=== PATIENT | female | born 1995 | race Hispanic/Latino ===

== ENCOUNTER 2019-07-22 13:04 | Emergency (ER) | payer OTHER ==
[~2019-07-22] VITALS: Ht 170.2 cm; Wt 79.4 kg
--- OUTSIDE RECORDS SUMMARY | 2019-07-22 13:07 | XMS REPORT | Continuity of Care Document ---
Author Author [employer] Address Unknown Phone Unavailable Care Team Providers Care Cardroom Manager Name Role Phone [employer] Information [employer] Unavailable Unavailable Problems Problem Status Onset Date Classification Date Reported Comments Source Immunization due 02/12/2019 Diagnosis 02/12/2019 [facility] Body mass index 25-29 - overweight 02/12/2019 Diagnosis 02/12/2019 [facility] Influenza-like symptoms 02/12/2019 Diagnosis 02/12/2019 [facility] Medications Medication Details Route Status Patient Instructions Ordering Provider Order Date Source ProAir HFA ProAir HFA Active [facility] Oseltamivir 75 MG Oral Capsule [Tamiflu] Tamiflu 75 mg capsule Take 1 capsule twice a day by oral route for 5 days. Active [facility] Allergies, Adverse Reactions, Alerts No Known Medication Allergies Immunizations No Data Provided for This Section Results Order Name Results Value Reference Range Date Interpretation Comments Source Influenza A positive 02/12/2019 [facility] Influenza B negative 02/12/2019 [facility] Pathology Reports No Data Provided for This Section Diagnostic Reports No Data Provided for This Section Consultation Notes No Data Provided for This Section Discharge Summaries No Data Provided for This Section History and Physicals No Data Provided for This Section Vital Signs Vital Sign Value Date Comments Source Diastolic (mm Hg) 60 02/12/2019 [facility] Height 67 02/12/2019 [facility] Systolic (mm Hg) 117 02/12/2019 [facility] Weight 173 02/12/2019 [facility] Encounters Location Location Details Encounter Type Encounter Number Reason For Visit Attending Provider ADM Date DC Date Status Source [place] - [facility] - [id number] Rico-C: [address] [place] [address], Ph. [id number] Tammi Aponte 02/12/2019 [facility] Procedures No Data Provided for This Section Assessment and Plan No Data Provided for This Section Plan of Care No Data Provided for This Section Social History Social History Date Source Smoking Status Never Smoker 02/12/2019 [facility] Family History No Data Provided for This Section Advance Directives No Data Provided for This Section Functional Status No Data Provided for This Section
--- OUTSIDE RECORDS SUMMARY | 2019-07-22 13:07 | XMS REPORT | Encounter Summary ---
Author Organization Unknown Address [address] [place] [address] Phone [phone] Reason for Visit Medical Complaint Instructions 1. Influenza-like symptoms Tamiflu 75 mg capsule rapid flu (A+B) influenza (flu): care instructions 2. Body mass index 25-29 - overweight A healthy lifestyle: care instructions 3. Immunization due Discussion Note: None recorded. Plan of Care Patient Instructions Influenza (flu) is a viral illness. Treatment is focused on symptomatic relief, including antipyretics, decongestants, and expectorants. Oral antiviral decreases the duration and severity of symptoms. Further management include increased fluids, rest, good hand washing, humidify air to prevent drying of respiratory secretions. Minimize contact with others. Generally contagious starting the day before symptoms appear until 5-10 days after symptoms begin. Seek care (PCP, Urgent Care, ER) or [facility] if symptoms worsen, persists >10 days, or if gradual improvement does not occur over 3-5 days. Reminders Provider Appointments None recorded. Lab Rapid Flu (A+B) 02/12/2019 [facility] Referral None recorded. Procedures None recorded. Surgeries None recorded. Imaging None recorded. Medications Name Start Date ProAir HFA Tamiflu 75 mg capsule Take 1 capsule twice a day by oral route for 5 days. Medications Administered None recorded. Vitals Height Weight BMI Blood Pressure 5 ft 7 in 173 lbs 27.1 kg/m2 117/60 mm[Hg] Lab Results Date Name Specimen Result Interpretation Description Value Range Status Address Rapid Flu (A+B) Influenza a positive [facility]: [address] [place] [address] Influenza B negative [facility]: [address] [place] [address] Allergies Code Code System Name Reaction Severity Status Onset NKDA Problems No Known Problems Procedures None recorded. Vaccine List None recorded. Social History Smoking Status Never Smoker Past Encounters 02/12/2019 Influenza-like Symptoms; Body Mass Index 25-29 - Overweight; Immunization Due Tammi Aponte, MIKEY-C: [address] [place] [address], Ph. History of Present Illness [id number] Reported By: Patient HPI: Location: head/sinuses, throat. Quality: productive cough, nasal/sinus congestion, dry cough. Duration: 2days. Onset/Timing: gradual. Context: no sick contacts, no foreign travel, non-smoker. Modifying factors: OTC medication. Associated Symptoms: no sputum production, no shortness of breath, no wheezing, no change in number of pillows needed to sleep at night, no sweats, no significant weight gain, no significant weight loss, no morning cough, no sore throat, no vomiting, no diarrhea, no rash, no nausea, no fever, no headache, fatigue, fever, muscle aches Review of Systems:ROS as noted in the HPI Review of Systems Basic Reported By: Patient Physical Exam Adult Basic, Adult Female Complete Reported By: Patient Constitutional: General Appearance: healthy-appearing, well-nourished, well-developed. Level of Distress: NAD. Ambulation: ambulating normally Psychiatric: Mental Status: active and alert. Orientation: to time, to place, to person Eyes: Lids and Conjunctivae: non-injected, no discharge, no pallor Uft-Wend-Jsrgz-Throat: Ears: no lesions on external ear, no outer ear tenderness, EACs clear, TM opacified. Hearing: no hearing loss. Nose: no lesions on external nose, nares patent, no septal deviation, nasal passages clear, no sinus tenderness, nasal discharge--rhinorrhea, post nasal drip. Lips, Teeth, and Gums: no mouth or lip ulcers, no bleeding gums, normal dentition. Oropharynx: moist mucous membranes, no erythema, no exudates, tonsils not enlarged Lungs: Respiratory effort: no dyspnea, no tachypnea, no use of accessory muscles, no intercostal retractions. Auscultation: breath sounds normal Cardiovascular: Heart Auscultation: RRR, no murmurs
[2019-07-22] MEDS ORDERED: SODIUM CHLORIDE 0.9% 1000ML 1,000 ML IV ONE (13:15)
[2019-07-22] MEDS ORDERED: DEXAMETHASONE SOD PHOS 10 MG/1 ML VIAL IV ONE (13:15)
[2019-07-22] MEDS ORDERED: ALBUTEROL/IPRATROPIUM 3 ML NEB NEB ONE (13:15)
--- NOTE | 2019-07-22 14:43 | Diagnostic Imaging Report ---
Exam: PA and lateral chest radiograph Clinical history: Wheezing Findings: There is no evidence of pulmonary consolidation, pleural effusion, or pneumothorax. The cardiac size is within normal limits. The regional osseous structures are unremarkable. Impression: No radiographic evidence of acute cardiorespiratory disease. Signed by: Dr. Anthony Aparicio MD on 07/22/2019 2:39 PM
== END 2019-07-22 15:14 | disposition home or self-care (01) ==
LOC: ER 13:04
DX: J45.31 Mild persistent asthma with (acute) exacerbation (principal); R00.0 Tachycardia, unspecified; I45.10 Unspecified right bundle-branch block
CPT/HCPCS: 71046; 93005; 94640; 99284; J1100; J7030